=== PATIENT | female | born 1980 | race Caucasian/White ===

== ENCOUNTER 2016-08-12 15:24 | Emergency (ER) | payer MEDICAID, OTHER ==
[~2016-08-12] VITALS: Ht 175.3 cm; Wt 70.0 kg
[~2016-08-12 15:24] MED LIST: ALPR0.5T PO; AML5T PO; ASPI1TAB22 PO; CLN.1T PO; DICL500C PO; DOCU-34 PO; DOXA2TAB PO; DULO30CA3 PO; DXZS4T PO; FERR325T36 PO; FLUO20CA42 PO; HYDR-3702; HYDR-3702 PO; HYDR-3811 PO; LEVO250T46 PO; LSNP20T PO; METO-270 PO; METO-274 PO; METO100T2 PO; NAPR220T76 PO; NEBI10TA PO; NEBI5TAB8 GT; NITR100C3 PO; NORE0.3518 PO; NORE0.354 PO; ONDN4T; PREN1TAB19 PO; SERT25TA69 PO; TRAM-25 PO; ZOLP5TAB PO; [UNRECOGNIZED DRUG - CODE] PO; birth control pills
--- OUTSIDE RECORDS SUMMARY | 2016-08-12 15:28 | XMS REPORT | Continuity of Care Document ---
Author Author [facility] Organization [facility] Address Unknown Phone Unavailable Care Team Providers Care Auto [employer] Man Name Role Phone Fahad Allison MD PCP [phone] Insurance Providers Payer Name Policy Number Subscriber Name Relationship [facility] [id number] Berto Gramajo 01 Advance Directives Directive Response Recorded Date/Time Advanced Directives No 02/25/16 10:00am Chief Complaint and Reason for Visit Chief Complaint Pain Reason for Visit Migraine Problems Active Problems Medical Problem Onset Date Status Acute mastitis of right breast Unknown Resolved Diarrhea 03/23/2012 Resolved Essential hypertension ~08/27/2013 Chronic Flank pain 03/25/2013 Resolved Hypertension ~03/21/2014 Acute Influenza Unknown Acute Migraine 02/10/2016 Acute Smoker ~03/21/2014 Acute Upper respiratory infection Unknown Acute Urinary tract infection Unknown Acute Vascular headache ~03/21/2014 Acute Medications Current Home Medications Medication Dose Units Route Directions Days/Qty Instructions Start Date Aspirin/Acetaminophen/Caffeine 1 Each 1 Each ORAL As Needed 05/06/15 Doxazosin Mesylate (Cardura) 4 Mg 4 Mg ORAL Daily 30 02/10/16 Metoprolol Succinate 25 Mg 25 Mg ORAL Daily 30 02/10/16 Sertraline Hcl (Zoloft) 25 Mg 25 Mg ORAL Daily 60 02/10/16 Past Home Medications Medication Directions Ordered Status Alprazolam 0.5 Mg Tablet, 0.5 Mg Oral As Needed 03/23/12 Discontinued Fluoxetine Hcl 20 Mg Cap, 20 Mg Oral Daily 03/23/12 Discontinued Zolpidem Tartrate 5 Mg Tablet, 5 Mg Oral Bedtime 03/23/12 Discontinued Clonidine Hcl 0.1 Mg Tab, 0.1 Mg Oral Twice A Day 03/23/12 Discontinued Acetaminophen/Hydrocodone Bitart 1 Each Tablet, 03/25/13 Discontinued Ondansetron Hcl 4 Mg Tablet, 03/25/13 Discontinued Vit/Fe Fumarate/Fa 1 Each Tablet, 1 Each Oral Daily 08/18/13 Discontinued Acetaminophen/Hydrocodone Bitart 1 Each Tablet, 1 Tab Oral Every 6 Hours as needed for Breakthrough Pain 08/19/13 Discontinued Ferrous Sulfate 325 Mg Tablet, 325 Mg Oral Daily 08/19/13 Discontinued Docusate Sodium 100 Mg Capsule, 100 Mg Oral Twice A Day 08/19/13 Discontinued Naproxen Sodium 220 Mg Tablet, 440 Mg Oral Every 12 Hours 08/19/13 Discontinued Norethindrone 0.35 Mg Tablet, 0.35 Mg Oral Daily 08/19/13 Discontinued Metoprolol Succinate 25 Mg Tab.er.24h, 25 Mg Oral Twice A Day for Hypertension 08/27/13 Discontinued [ Control Pills] , 03/21/14 Discontinued Metoprolol Succinate 100 Mg Tab.er.24h, 100 Mg Oral Twice A Day 03/21/14 Discontinued Lisinopril (Zestril) 20 Mg Tablet, 20 Mg Oral Daily 03/21/14 Discontinued Dicloxacillin Sodium 500 Mg Capsule, 500 Mg Oral Every 6 Hours 08/01/14 Discontinued Clonidine Hcl 0.1 Mg Tab, 0.1 Mg Oral Daily for Hypertension 08/01/14 Discontinued Metoprolol Tartrate 100 Mg Tablet, 100 Mg Oral Daily for Hypertension Discontinued Tramadol Hcl 200 Mg Tab.er.24h, 200 Mg Oral Daily Prn as needed for Pain Discontinued Acetaminophen/Hydrocodone Bitart 1 Each Tablet, 1-2 Tab Oral Every 6 Hours as needed for Pain 08/01/14 Discontinued Doxazosin Mesylate 2 Mg Tablet, 2 Mg Oral Bedtime 08/01/14 Discontinued Nebivolol 5 Mg Tablet, 5 Mg G Tube Daily 03/28/15 Discontinued Duloxetine Hcl 30 Mg Capsule.dr, 30 Mg Oral Daily 05/06/15 Discontinued Nebivolol 10 Mg Tablet, 10 Mg Oral Daily 05/06/15 Discontinued Amlodipine Besylate (Norvasc) 5 Mg Tablet, 5 Mg Oral Daily 07/26/15 Discontinued Norethindrone 0.35 Mg Tablet, 5 Mg Oral Daily 07/26/15 Discontinued Tramadol Hcl 50 Mg Tablet, 50 Mg Oral Four Times Daily as needed for Severe Pain 07/26/15 Discontinued Nitrofurantoin/Nitrofuran Mac 100 Mg Capsule, 100 Mg Oral Twice A Day Discontinued Levofloxacin 250 Mg Tablet, 250 Mg Oral Daily 02/10/16 Discontinued Social History Query Response Start Date Stop Date Smoking Status Heavy tobacco smoker 10+ Hospital Discharge Instructions No hospital discharge instructions. Plan of Care Discharge Date 02/25/16 1:15pm Disposition 01 HOME OR SELF-CARE Condition at Discharge Stable Instructions/Education Provided Migraine Headache (ED) Prescriptions See Medication Section Referrals Fahad Allison MD - Additional Instructions/Education home to rest in a dark quiet room. Some of your test results may not be complete prior to your leaving the Emergency Department. The Emergency Department is not authorized to give test results over the phone. Please contact the doctor's office listed in this packet of information for your final results. Follow up with your primary care physician or return to the Emergency Department for worsening or worrisome symptoms. * Emergency Department phone number: [phone], x [phone]* MEDICAL RECORD If you need copies of your X-rays, call [phone]. If you need copies of your medical record, including lab results, a signed authorization for release of records will be required. A telephone call for release of Health Information is not allowed. BILLING Billing can sometimes be confusing and frustrating. To help avoid confusion in the future, please take a moment to acquaint yourself with the billing parties for services. SERVICE BILLING [employer] Emergency Room Services [facility] Physician Services [facility] X[facility] Patients will receive bills for services from the appropriate provider. If you have any questions about your [facility] bill, our staff will be happy to assist you. Please call [phone], and ask for the billing department. THANK YOU for choosing [facility] as your emergency care provider! Care Plan and Goals ~~Discharge Care Plan~~ Problem: Headache Goal: Decreased level of pain. Return to usual activities. Instructions: Take medication(s) as directed; follow up with primary care physician as directed; follow patient home care instructions. Home to rest in a quiet dark room. Functional Status No functional status results. Allergies, Adverse Reactions, Alerts No known allergies. Immunizations Name Given Type Status Date Influenza Vaccine Received if Current 01/19/14 Historical Historical Vital Signs Acute Vital Signs Vital Response Date/Time Temperature (Fahrenheit) 97.2 02/25/2016 10:00am Pulse 60 bpm 02/25/2016 1:25pm Respirations 16 02/25/2016 1:25pm Height 5 ft 9 in Weight 146 lb Body Mass Index 21.0 kg/m^2 Results No known relevant diagnostic tests, laboratory data and/or discharge summary. Procedures Procedure Status Date Provider(s) HYDRATE IV INFUSION ADD-ON Completed 02/10/16 THER/PROPH/DIAG INJ IV PUSH Completed 02/10/16 TX/PRO/DX INJ NEW DRUG ADDON Completed 02/10/16 EMERGENCY DEPT VISIT Completed 02/10/16 Completed 02/10/16 Completed 02/10/16 Completed 02/10/16 Completed 02/10/16 Completed 02/10/16 Completed 02/10/16 Encounters Encounter Location Arrival/Admit Date Discharge/Depart Date Attending Provider Registered Emergency Room [facility] 02/25/16 9:51am MARISABEL LIRIANO MD Departed Emergency Room [facility] 02/10/16 6:03am 02/10/16 9:25am MARISABEL LIRIANO MD Recent Diagnosis
[2016-08-12 16:30] LABS: CLARITY,URINE Clear; COLOR,URINE Orange; GLUCOSE, URINE (UA) Trace (Negative); LEUKOCYTE ESTERASE ,URINE 3+ (Negative)
[2016-08-12 16:35] LABS: BILIRUBIN,URINE 1+ (Negative)
[2016-08-12] MEDS ORDERED: ONDANSETRON 2 MG/ML (Z0FRAN) 2 ML VIAL IV ONE (16:40)
[2016-08-12 16:42] LABS: URINE CENTRIFUGED VOLUME 10 mL
[2016-08-12] MEDS: SODIUM CHLORIDE FLUSH 10 ML SYR IV PRN ×4 (16:48→18:26)
[2016-08-12 16:59] LABS: BASOPHILS % (AUTO) 0 % (0-2); EOSINOPHILS # (AUTO) 0.1 10^3uL; EOSINOPHILS % (AUTO) 1 % (0-4); LYMPHOCYTES # (AUTO) 2.3 X10^3; MEAN CORPUSCULAR HGB CONC 33.1 g/dL (31.0-37.0); MEAN CORPUSCULAR VOLUME 95 FL (80-100); MEAN PLATELET VOLUME 10.6 FL (6.0-9.5); MONOCYTES # (AUTO) 0.5 X10^3; MONOCYTES % (AUTO) 5 % (3-11); NEUTROPHILS # (AUTO) 6.9 X10^3; NEUTROPHILS % (AUTO) 70 % (51-67); PLATELET COUNT 221 10^3uL (150-450); WHITE BLOOD COUNT 9.89 10^3uL (4.0-11.0)
[2016-08-12 17:00] LABS: MEAN CORPUSCULAR HEMOGLOBIN 31.4 PG (26.0-34.0)
[2016-08-12] MEDS: morphine INJ 2 MG/ML 1 ML SYRINGE IV PRN ×2 (17:04→18:11)
[2016-08-12] MEDS ORDERED: diphenhydrAMINE 50 MG/ML INJ (BENADRYL) IV ONE (17:05)
[2016-08-12 17:08] LABS: ALBUMIN 4.8 g/dL (3.4-5.0); ANION GAP 16.6 MEQ/L (3-15); CALCULATED IONIZED CALCIUM 3.7 mg/dL (3.8-4.6); TOTAL PROTEIN 8.5 g/dL (6.4-8.5)
--- NOTE | 2016-08-12 17:38 | NUR ---
PT CALLS OUT TO STATE HER PAIN IS NO BETTER AT ALL/RATING IT THE SAME. CL
--- NOTE | 2016-08-12 17:39 | NUR ---
DR GARIBAY & MARISABEL NOTIFIED OF PT PAIN RATE. DR GARIBAY STATES PAIN MED ORDERED PRN & GO AHEAD & TITRATE UP IF NEEDED. MARISABEL DIAS NOTIFIED OF SAME. CL
[2016-08-12] MEDS ORDERED: diphenhydrAMINE 50 MG/ML INJ (BENADRYL) ONE (18:18)
[2016-08-12] MEDS ORDERED: HYDR-33 PO (18:21)
[2016-08-12] MEDS ORDERED: CPR500T PO (18:21)
[2016-08-12 22:43] VITALS: BP 137/89
--- NOTE | 2016-08-13 07:07 | Diagnostic Imaging Report ---
PROCEDURE: CT abdomen and pelvis without contrast. TECHNIQUE: Multiple contiguous axial images were obtained through the abdomen and pelvis without the use of intravenous contrast. INDICATION: History of stones. Right flank pain, previous hysterectomy. CT of the abdomen and pelvis without contrast 08/12/2016. COMPARISON: 06/13/2014 FINDINGS: The lung bases demonstrate no evidence for acute abnormalities. There is minimal patchy airspace opacity left lung base most likely atelectasis. The remaining visualized lungs clear. In the abdomen and pelvis hypodensities throughout the liver are noted within the right lobe too small to characterize especially without contrast. Nonetheless this is stable since the previous examination and therefore likely a benign process. Remaining abdominal viscera also limited evaluation due to the lack of contrast. The spleen, adrenal glands and pancreas demonstrate no evidence for acute disease. There are tiny punctate stones in the left kidney with no stones identified in the right. No hydronephrosis is seen on either side and there are no ureteral stones identified. Multiple calcifications are seen in the pelvis but likely all phleboliths. Appendix is not seen but no inflammatory changes seen in the right lower quadrant. There is evidence of previous hysterectomy. There is a small fat-containing umbilical hernia. There is no acute osseous abnormality. IMPRESSION: 1. Stones in the left kidney nonobstructive in nature. No hydronephrosis or definite ureteral stone seen on either side. Calcifications in the pelvis likely all phleboliths with a small distal ureteral stone difficult to completely exclude but felt to be less likely. 2. Incidental findings as discussed above none of which appear acute. Findings agree with the preliminary report. Dictated by: Dictated on workstation # [id number]
== END 2016-08-12 18:43 | disposition home or self-care (01) ==
LOC: ED 15:25
DX: N30.80 Other cystitis without hematuria (principal); N20.0 Calculus of kidney; Z87.442 Personal history of urinary calculi; F17.210 Nicotine dependence, cigarettes, uncomplicated
CPT/HCPCS: 36415; 74176; 80053; 81003; 81015; 85025; 87077; 87088; 87186; 96374; 96375; 96376; 99283; J1200; J2270; J2405

== ENCOUNTER 2016-08-20 16:08 | Emergency (ER) | payer MEDICAID ==
[~2016-08-20] VITALS: Ht 175.3 cm; Wt 70.5 kg
[~2016-08-20 16:08] MED LIST changes: +CPR500T PO; +HYDR-33 PO
[2016-08-20] MEDS ORDERED: SODIUM CHLORIDE FLUSH 3 ML SYR IV PRN (16:40)
[2016-08-20] MEDS ORDERED: HYDROmorphone 1 MG/ML (DILAUDID) SYRINGE IV ONE (16:40)
[2016-08-20] MEDS ORDERED: ONDANSETRON 2 MG/ML (Z0FRAN) 2 ML VIAL IV ONE (16:40)
[2016-08-20] MEDS: SODIUM CHLORIDE FLUSH 10 ML SYR IV PRN ×2 (16:47→17:25)
[2016-08-20 17:01] LABS: BASOPHILS % (AUTO) 1 % (0-2); EOSINOPHILS # (AUTO) 0.2 10^3uL; EOSINOPHILS % (AUTO) 2 % (0-4); LYMPHOCYTES # (AUTO) 2.5 X10^3; MEAN CORPUSCULAR HEMOGLOBIN 31.3 PG (26.0-34.0); MEAN CORPUSCULAR HGB CONC 33.6 g/dL (31.0-37.0); MEAN CORPUSCULAR VOLUME 93 FL (80-100); MEAN PLATELET VOLUME 10.7 FL (6.0-9.5); MONOCYTES # (AUTO) 0.4 X10^3; MONOCYTES % (AUTO) 5 % (3-11); NEUTROPHILS # (AUTO) 5.7 X10^3; NEUTROPHILS % (AUTO) 64 % (51-67); PLATELET COUNT 222 10^3uL (150-450); WHITE BLOOD COUNT 8.83 10^3uL (4.0-11.0)
[2016-08-20 17:05] LABS: BILIRUBIN,URINE Negative (Negative); CLARITY,URINE Cloudy; COLOR,URINE Yellow; GLUCOSE, URINE (UA) Negative (Negative); LEUKOCYTE ESTERASE ,URINE Negative (Negative); PH,URINE 5.5 (5.0 - 8.0); UROBILINOGEN,URINE 0.2 mg/dL (0.2-1.0)
[2016-08-20 17:10] LABS: AMORPHOUS SEDIMENT,UR 1+ /HPF; URINE CENTRIFUGED VOLUME <10mL Unspun
--- NOTE | 2016-08-20 17:12 | Diagnostic Imaging Report ---
PROCEDURE: CT abdomen and pelvis without contrast. TECHNIQUE: Multiple contiguous axial images were obtained through the abdomen and pelvis without the use of intravenous contrast. Indication: Right flank pain. Comparison: 08/12/2016. Discussion: The visualized lung bases are well-aerated. Normal heart size. No pleural or pericardial fluid. 1 cm hypodensity within the posterior right hepatic dome is stable, likely benign. Otherwise the liver, gallbladder, pancreas, stomach, spleen, and adrenal glands are unremarkable. Nonobstructing punctate left renal calculi are stable. No hydronephrosis on either side. The uterus is surgically absent. Urinary bladder is decompressed. No obstruction, pneumatosis, or pneumoperitoneum. The appendix is not identified with certainty though no secondary inflammatory changes are present. No ascites or pathologically enlarged lymph nodes identified. No acute osseous abnormality identified. Impression: 1. Punctate nonobstructing left renal calculi, stable. Dictated by: Dictated on workstation # [id number]
[2016-08-20 17:20] LABS: ALBUMIN 4.8 g/dL (3.4-5.0); ANION GAP 18.3 MEQ/L (3-15); CALCULATED IONIZED CALCIUM 3.8 mg/dL (3.8-4.6); TOTAL PROTEIN 8.5 g/dL (6.4-8.5)
[2016-08-20] MEDS ORDERED: diphenhydrAMINE 50 MG/ML INJ (BENADRYL) IV ONE (17:20)
[2016-08-20] MEDS ORDERED: METOCLOPRAMIDE 10 MG/2 ML (REGLAN) VIAL IV ONE ×2 (17:20→17:50)
--- NOTE | 2016-08-20 18:35 | NUR ---
Patient reports headache pain, "Much better." Rates 5/10.
[2016-08-20] MEDS ORDERED: ONDAN4ODT PO (19:00)
[2016-08-20] MEDS ORDERED: HYDR-3811 PO (19:00)
[2016-08-20 19:17] VITALS: BP 134/90
== END 2016-08-20 19:21 | disposition home or self-care (01) ==
LOC: ED 16:10
DX: N20.1 Calculus of ureter (principal); G43.909 Migraine, unspecified, not intractable, without status migrainosus
CPT/HCPCS: 36415; 74176; 80053; 81003; 81015; 83690; 85025; 96361; 96374; 96375; 99284; J1170; J1200; J2405; J2765; J7030; 99283